=== PATIENT | female | born 1995 | race Caucasian/White ===

== ENCOUNTER 2020-03-19 10:42 | Inpatient (IN) ==
[2020-03-19] MEDS: LACTATED RINGERS 1,000 ML IV SCH ×2 (11:08→12:51)
[2020-03-19] MEDS ORDERED: CITRIC ACID/SODIUM CITRATE 30 ML UDCUP PO ONE (11:18)
[2020-03-19] MEDS ORDERED: FAMOTIDINE 20 MG/2 ML VIAL IV ONE (11:18)
[2020-03-19] MEDS ORDERED: OXYTOCIN 10 UNIT/ML VIAL IM ONE (11:18)
[2020-03-19] MEDS ORDERED: ceFAZolin 3,000 MG in SYRINGE 1 EACH IV ONE (11:18)
[2020-03-19] MEDS ORDERED: OXYTOCIN/LR 30 UNIT/1,000 ML BAG IV ONE (11:18)
[2020-03-19 11:41] LABS: Basophils % 0.2 % (0.0-0.8); Eosinophils # 0.3 10*3/uL (0.0-0.87); Eosinophils % 2.2 % (0.00-10.9); Hemoglobin 11.4 GM/DL (12.0-16.0); Immature Granulocytes % 0.5 %; Immature Granulocytes Absolute 0.06 #; Lymphocytes # 1.9 10*3/uL (1.4-4.0); Lymphocytes % 17.3 % (21.3-54.2); Mean Corpuscular HGB Conc 33.5 GM/DL (32-36); Mean Corpuscular Volume 89.9 FL (87-102); Mean Platelet Volume 11.7 FL (9.6-12.0); Monocytes % 6.1 % (1.7-12.7); Neutrophils % 73.7 % (38.7-73.9); Platelet Count 214 T/CUMM (130-400); Red Blood Count 3.78 MC/CUMM (3.8-5.5); Red Cell Distribution Width 13.2 % (9.3-17.3); White Blood Count 11.2 T/CUMM (4-12)
[2020-03-19 12:04] LABS: Alanine Aminotransferase 11 U/L (13-56); Albumin 2.4 G/DL (3.4-5.0); Alkaline Phosphatase 205 U/L (45-117); Aspartate Amino Transferase 14 U/L (0-37); Bilirubin,Total < 0.39 MG/DL (0.2-1.0); Blood Urea Nitrogen 8 MG/DL (7-18); Calcium 8.8 MG/DL (8.5-10.1); Estimated Glom Filtration Rate 149 ML/MIN; Glucose 90 MG/DL (74-106); Total Protein 6.2 G/DL (6.4-8.3)
[2020-03-19] MEDS ORDERED: CARBOPROST TROMETHAMINE 250 MCG/ML AMP IM ONE (13:54)
[2020-03-19] MEDS ORDERED: METHYLERGONOVINE 0.2 MG/1 ML AMP ONE (13:54)
[2020-03-19] MEDS ORDERED: miSOPROStoL 200 MCG TABLET ONE (13:54)
[2020-03-19] MEDS ORDERED: ROPIVACAINE 0.5% 30 ML VIAL ONE (13:56)
[2020-03-19 14:59] LABS: Cord Arterial Blood HCO3 21.5 MMOL/L
[2020-03-19 15:01] LABS: Cord Venous Blood PCO2 51.1 MMHG; Cord Venous Blood PO2 20.1
[2020-03-19] MEDS ORDERED: OXYTOCIN/LR 20 UNIT/1,000 ML BAG IV ONE (15:07)
[2020-03-19] MEDS ORDERED: SIMETHICONE CHEW 80 MG TABLET PO PRN (15:07)
[2020-03-19] MEDS ORDERED: RHO(D) IMMUNE GLOBULIN 300 MCG SYRINGE IM ONE (15:07)
[2020-03-19] MEDS ORDERED: ONDANSETRON 4 MG/2 ML VIAL IV PRN (15:07)
[2020-03-19] MEDS ORDERED: ACETAMINOPHEN 325 MG TABLET PO PRN (15:07)
[2020-03-19] MEDS ORDERED: MAGNESIUM HYDROXIDE SUSP 30 ML UDCUP PO PRN (15:07)
[2020-03-19 15:18] LABS: Bilirubin,Urine Negative (Negative); Blood, Urine Negative (Negative); Glucose,Urine (UA) Negative (Negative); Hyaline Casts,Urine 1 /LPF (0-3); Ketones,Urine Negative (Negative); Mucus,Urine Occasional /LPF (Occasional); Nitrite,Urine Negative (Negative); Protein,Urine Negative; Urine Appearance CLEAR (Clear); Urine Color Yellow (Yellow); Urine Specific Gravity 1.013 (1.001-1.035); Urine Urobilinogen < 2.0 EU/DL (0.2-1.0)
[2020-03-19] MEDS ORDERED: LACTATED RINGERS 1,000 ML IV SCH (15:30)
[2020-03-19] MEDS ORDERED: MORPHINE 10 MG/10 ML VIAL ONE (15:34)
[2020-03-19] MEDS ORDERED: ONDANSETRON 4 MG/2 ML VIAL ONE (15:35)
[2020-03-19] MEDS ORDERED: PHENYLEPHRINE 1 MG/10 ML SYRINGE IV ONE (15:35)
[2020-03-19] MEDS: KETOROLAC 30 MG/1 ML VIAL IV SCH ×2 (17:19→22:24)
[2020-03-19] MEDS: DOCUSATE SODIUM 100 MG CAPSULE PO SCH (21:03)
[2020-03-19 23:24] LABS: Basophils % 0.2 % (0.0-0.8); Eosinophils % 0.1 % (0.00-10.9); Hematocrit 31.9 VOL% (35.7-47.0); Hemoglobin 10.7 GM/DL (12.0-16.0); Immature Granulocytes % 0.3 %; Immature Granulocytes Absolute 0.06 #; Lymphocytes # 1.2 10*3/uL (1.4-4.0); Lymphocytes % 6.7 % (21.3-54.2); Mean Corpuscular HGB Conc 33.5 GM/DL (32-36); Mean Corpuscular Volume 89.1 FL (87-102); Mean Platelet Volume 11.8 FL (9.6-12.0); Monocytes % 3.3 % (1.7-12.7); Neutrophils % 89.4 % (38.7-73.9); Platelet Count 188 T/CUMM (130-400); Red Blood Count 3.58 MC/CUMM (3.8-5.5); Red Cell Distribution Width 12.9 % (9.3-17.3); White Blood Count 17.8 T/CUMM (4-12)
[2020-03-20 05:28] LABS: Basophils % 0.1 % (0.0-0.8); Eosinophils % 0.2 % (0.00-10.9); Hematocrit 31.3 VOL% (35.7-47.0); Hemoglobin 10.1 GM/DL (12.0-16.0); Immature Granulocytes % 0.5 %; Immature Granulocytes Absolute 0.08 #; Lymphocytes # 1.5 10*3/uL (1.4-4.0); Lymphocytes % 9.1 % (21.3-54.2); Mean Corpuscular HGB Conc 32.3 GM/DL (32-36); Mean Corpuscular Volume 92.1 FL (87-102); Mean Platelet Volume 11.8 FL (9.6-12.0); Monocytes % 4.8 % (1.7-12.7); Neutrophils % 85.3 % (38.7-73.9); Platelet Count 179 T/CUMM (130-400); Red Cell Distribution Width 12.9 % (9.3-17.3); White Blood Count 16.7 T/CUMM (4-12)
[2020-03-20] MEDS: KETOROLAC 30 MG/1 ML VIAL IV SCH ×2 (05:39→13:14)
[2020-03-20] MEDS: DOCUSATE SODIUM 100 MG CAPSULE PO SCH ×2 (08:51→22:30)
[2020-03-20] MEDS: MULTIVITAMIN (PRENATAL) TABLET PO SCH (08:51)
[2020-03-20] MEDS: METOCLOPRAMIDE 10 MG TABLET PO SCH ×3 (08:51→23:30)
[2020-03-20] MEDS: IBUPROFEN 800 MG TABLET PO PRN (16:36)
[2020-03-21] MEDS: METOCLOPRAMIDE 10 MG TABLET PO SCH (09:32)
[2020-03-21] MEDS: IBUPROFEN 800 MG TABLET PO PRN (09:32)
[2020-03-21] MEDS: MULTIVITAMIN (PRENATAL) TABLET PO SCH (09:32)
[2020-03-21] MEDS: DOCUSATE SODIUM 100 MG CAPSULE PO SCH (09:32)
[2020-03-21 09:46] VITALS: BP 121/71
== END 2020-03-21 13:20 | disposition home or self-care (01) | DRG 540 ==
LOC: N.LD 10:42 → N.OB 17:56
PROVIDERS: ADMIT Obstetrics & Gynecology; ATTEND Obstetrics & Gynecology
PROC: LDCSECT (ICD-10-PCS; 2020-03-19 12:30)